=== PATIENT | female | born 1995 | race Asian ===

== ENCOUNTER 2018-01-29 07:27 | Emergency (ER) | payer MEDICAID, OTHER ==
[~2018-01-29] VITALS: Ht 157.5 cm; Wt 60.0 kg
[~2018-01-29 07:27] MED LIST: ONDA4TAB12 PO; ONDA4TAB6 PO; ONDA4TAB9 PO; PANT20TA2 PO
[2018-01-29 08:09] LABS: URINE HCG NEGATIVE (NEG)
[2018-01-29] MEDS ORDERED: ondansetron/PF 4mg/2ml inj IV ONE ×2 (08:10→09:50)
[2018-01-29] MEDS ORDERED: normal saline 1000ML IV soln IVB ONE (08:10)
[2018-01-29] MEDS ORDERED: ketorolac tromethamine 15mg/ml inj. IV ONE (08:10)
[2018-01-29] MEDS ORDERED: MORPHINE 2MG in 2ml NS syringe IV PRN (08:10)
[2018-01-29 08:15] LABS: BASOPHILS % (AUTO) 0 % (0-1); EOSINOPHILS # (AUTO) 0.1 X10'3 (0-0.9); EOSINOPHILS % (AUTO) 2.1 % (0-6); HEMATOCRIT 43.1 % (35.0-45.0); HEMOGLOBIN 14.8 g/dl (12.0-16.0); LYMPHOCYTES # (AUTO) 0.9 X10'3 (1.1-4.8); LYMPHOCYTES % (AUTO) 13.2 % (21-51); MEAN CORPUSCULAR HEMOGLOBIN 29.3 PG (27.0-31.0); MEAN CORPUSCULAR HGB CONC 34.4 % (33.0-36.5); MEAN CORPUSCULAR VOLUME 85.1 FL (78-98); MEAN PLATELET VOLUME 8.9 FL (7.4-10.4); MONOCYTES # (AUTO) 0.3 X10'3 (0-0.9); NEUTROPHILS # (AUTO) 5.3 X10'3 (1.8-7.7); NEUTROPHILS % (AUTO) 79.7 % (42-75); PLATELET COUNT 225 X10'3 (140-440); RED BLOOD COUNT 5.07 X10'6 (4.20-5.60); RED CELL DISTRIBUTION WIDTH 13.2 % (11.5-14.5); WHITE BLOOD COUNT 6.7 X10'3 (4.5-11.0)
[2018-01-29 08:19] LABS: CLARITY,URINE CLEAR (Clear); COLOR,URINE YELLOW (Yellow); GLUCOSE, URINE NEGATIVE (Neg); KETONES,URINE 15 mg/dl (Neg); LEUKOCYTE ESTERASE ,URINE NEGATIVE (Neg); NITRITES, URINE NEGATIVE (Neg); OCCULT BLOOD,URINE TRACE-INTACT (Neg); PROTEIN,URINE TRACE mg/dl (Neg); UROBILINOGEN,URINE 0.2 E.U/dL (0.2-1.0)
[2018-01-29 08:23] LABS: PROTHROMBIN TIME 10.5 SECONDS (9.0-12.0)
[2018-01-29 08:23] LABS: UA COLLECTION TYPE CLN CATCH MIDSTREAM
[2018-01-29 08:25] LABS: BACTERIA,URINE FEW /HPF (Neg); MUCUS STRANDS FEW /LPF (Neg); SQUAMOUS EPITHELIAL CELL,UR FEW /LPF (FEW); WBC,URINE 0-4 /HPF (0-4)
[2018-01-29 08:32] LABS: ALANINE AMINOTRANSFERASE 58 U/L (12-78); ALBUMIN 4.2 G/DL (3.4-5.0); ALBUMIN/GLOBULIN RATIO 1.2 (1.1-1.5); ALKALINE PHOSPHATASE 61 IU/L (46-116); ANION GAP 13 (8-16); ASPARTATE AMINO TRANSFERASE 20 U/L (10-37); BILIRUBIN,TOTAL 1.8 MG/DL (0.1-1.0); BLOOD UREA NITROGEN 14 MG/DL (7-18); BUN/CREATININE RATIO 19.4 (6.6-38.0); CHLORIDE 105 MMOL/L (99-107); CREATININE 0.72 MG/DL (0.40-0.90); GLUCOSE 109 MG/DL (70-104); POTASSIUM 3.6 MMOL/L (3.5-5.1); SODIUM 139 MMOL/L (135-145); TOTAL CARBON DIOXIDE 21.3 MMOL/L (24-32); TOTAL PROTEIN 7.6 G/DL (6.4-8.2); eGFR > 90 ML/MIN
[2018-01-29] MEDS ORDERED: ONDA4TAB9 PO (09:42)
[2018-01-29] MEDS ORDERED: proCHLORperazine 10 MG/2 ml inj IV ONE (09:50)
[2018-01-29 10:11] VITALS: BP 100/60
== END 2018-01-29 10:13 | disposition home or self-care (01) ==
LOC: ER 07:27
DX: R11.2 Nausea with vomiting, unspecified (principal); R19.7 Diarrhea, unspecified; E86.0 Dehydration; G89.29 Other chronic pain; F12.10 Cannabis abuse, uncomplicated
CPT/HCPCS: 36415; 74176; 80053; 81001; 81025; 85025; 85610; 96361; 96374; 96375; 96376; 99285; J0780; J1885; J2405; J7030

== ENCOUNTER 2018-10-09 15:01 | Inpatient (IN) | payer OTHER, MEDICAID | END 2018-10-10 15:30 | disposition home or self-care (01) | LOC: ORTHO 4S 10-10 06:45 → ER 15:01 → ED HOLD 22:08 ==

== ENCOUNTER 2020-07-24 05:51 | Emergency (ER) | payer MEDICAID ==
[~2020-07-24] VITALS: Ht 157.5 cm; Wt 59.1 kg
[~2020-07-24 05:51] MED LIST changes: -ONDA4TAB12 PO; -ONDA4TAB6 PO; -ONDA4TAB9 PO; -PANT20TA2 PO; +PROC10TA10 PO
[2020-07-24] MEDS ORDERED: pantoprazole 40 MG vial IV ONE (06:10)
[2020-07-24] MEDS ORDERED: normal saline 1000ML IV soln IVB ONE (06:10)
[2020-07-24] MEDS ORDERED: ondansetron/PF 4mg/2ml inj IV ONE (06:10)
[2020-07-24] MEDS ORDERED: haloperidol lactate 5mg/ml inj IM ONE (06:30)
--- NOTE | 2020-07-24 06:40 | NUR ---
pt states, i drank to much tequila
[2020-07-24 07:51] LABS: BASOPHILS % (AUTO) 0.3 % (0-1); EOSINOPHILS % (AUTO) 0.1 % (0-6); HEMATOCRIT 43.1 % (35.0-45.0); HEMOGLOBIN 14.7 g/dl (12.0-16.0); LYMPHOCYTES # (AUTO) 1.5 X10'3 (1.1-4.8); LYMPHOCYTES % (AUTO) 10.6 % (21-51); MEAN CORPUSCULAR HEMOGLOBIN 29.8 PG (27.0-31.0); MEAN CORPUSCULAR VOLUME 87.5 FL (78-98); MONOCYTES # (AUTO) 0.5 X10'3 (0-0.9); MONOCYTES % (AUTO) 3.9 % (2-12); NEUTROPHILS # (AUTO) 11.7 X10'3 (1.8-7.7); NEUTROPHILS % (AUTO) 85.1 % (42-75); PLATELET COUNT 257 X10'3 (140-440); RED BLOOD COUNT 4.92 X10'6 (4.20-5.60); RED CELL DISTRIBUTION WIDTH 13.4 % (11.5-14.5); WHITE BLOOD COUNT 13.8 X10'3 (4.5-11.0)
[2020-07-24 08:01] LABS: ALANINE AMINOTRANSFERASE 21 U/L (12-78); ALBUMIN 4.6 G/DL (3.4-5.0); ALBUMIN/GLOBULIN RATIO 1.3 (1.1-1.5); ALKALINE PHOSPHATASE 53 IU/L (46-116); ANION GAP 15 (8-16); ASPARTATE AMINO TRANSFERASE 17 U/L (10-37); BILIRUBIN,TOTAL 2.1 MG/DL (0.1-1.0); BLOOD UREA NITROGEN 11 MG/DL (7-18); BUN/CREATININE RATIO 14.5 (6.6-38.0); CALCIUM 9.9 MG/DL (8.5-10.1); CHLORIDE 104 MMOL/L (99-107); CREATININE 0.76 MG/DL (0.40-0.90); GLUCOSE 139 MG/DL (70-104); LIPASE 71 U/L (73-393); POTASSIUM 3.5 MMOL/L (3.5-5.1); SODIUM 141 MMOL/L (135-145); TOTAL CARBON DIOXIDE 22.4 MMOL/L (24-32); TOTAL PROTEIN 8.1 G/DL (6.4-8.2); eGFR > 90 ML/MIN
[2020-07-24 08:12] LABS: HCG SERUM QL NEGATIVE
[2020-07-24] MEDS ORDERED: ONDA4TAB6 PO (08:21)
[2020-07-24] MEDS ORDERED: OMEP40CA13 PO (08:21)
[2020-07-24 09:03] VITALS: BP 104/65
--- NOTE | 2020-07-24 09:04 | NUR ---
no vomting nausea a little better.
== END 2020-07-24 09:48 | disposition home or self-care (01) ==
LOC: ER 05:52
DX: K29.00 Acute gastritis without bleeding (principal); R11.2 Nausea with vomiting, unspecified; R10.84 Generalized abdominal pain; F12.90 Cannabis use, unspecified, uncomplicated; Z79.899 Other long term (current) drug therapy
CPT/HCPCS: 36415; 80053; 83690; 84703; 85025; 96361; 96372; 96374; 96375; 99284; C9113; J1630; J2405; J7030

== ENCOUNTER 2020-07-26 06:42 | Emergency (ER) | payer MEDICAID ==
[~2020-07-26] VITALS: Ht 157.5 cm; Wt 54.0 kg
[~2020-07-26 06:42] MED LIST changes: +OMEP40CA13 PO; +ONDA4TAB6 PO
[2020-07-26] MEDS ORDERED: diphenhydrAMINE 50 mg/ml inj IV ONE (07:00)
[2020-07-26] MEDS ORDERED: ondansetron/PF 4mg/2ml inj IV ONE (07:00)
[2020-07-26] MEDS ORDERED: normal saline 1000ML IV soln IVB ONE (07:00)
[2020-07-26] MEDS ORDERED: LORazepam 2 mg/ml vial IV ONE (07:00)
[2020-07-26] MEDS ORDERED: metoclopramide 5 mg/ml inj IV ONE (07:00)
[2020-07-26] MEDS ORDERED: pantoprazole 40 MG vial IV ONE (07:00)
--- NOTE | 2020-07-26 07:21 | NUR ---
cosigned meds with rn. scanner not working
[2020-07-26 07:45] LABS: ALANINE AMINOTRANSFERASE 19 U/L (12-78); ALBUMIN 4.2 G/DL (3.4-5.0); ALBUMIN/GLOBULIN RATIO 1.2 (1.1-1.5); ALKALINE PHOSPHATASE 57 IU/L (46-116); ANION GAP 13 (8-16); ASPARTATE AMINO TRANSFERASE 17 U/L (10-37); BILIRUBIN,TOTAL 1.2 MG/DL (0.1-1.0); BLOOD UREA NITROGEN 14 MG/DL (7-18); BUN/CREATININE RATIO 17.3 (6.6-38.0); CALCIUM 9.2 MG/DL (8.5-10.1); CHLORIDE 103 MMOL/L (99-107); CREATININE 0.81 MG/DL (0.40-0.90); GLUCOSE 122 MG/DL (70-104); SODIUM 138 MMOL/L (135-145); TOTAL CARBON DIOXIDE 21.9 MMOL/L (24-32); TOTAL PROTEIN 7.6 G/DL (6.4-8.2); eGFR 87 ML/MIN
[2020-07-26] MEDS: potassium Cl 10 mEq/100mL bag IV SCH ×2 (08:15→09:39)
[2020-07-26] MEDS ORDERED: potassium Cl 20 mEq SR tablet PO ONE (08:15)
[2020-07-26] MEDS ORDERED: haloperidol lactate 5mg/ml inj IM ONE (08:25)
--- NOTE | 2020-07-26 08:48 | NUR ---
pt medicated again with halodol im as pt was still not feeling better ,c/o nausea .pt iv pottassium infusing as per md orders ,no distress noted ,will cont to monitor and reassess the nausea .
--- NOTE | 2020-07-26 08:50 | NUR ---
pt pottasium oral meds not admin because pt said she is still nauseous and take it later ,will cont to monitor .
[2020-07-26 09:58] VITALS: BP 112/77
[2020-07-27] MEDS ORDERED: ONDA4TAB6 PO (22:30)
[2020-07-27] MEDS ORDERED: FAMO40TA73 PO (22:30)
== END 2020-07-26 11:11 | disposition home or self-care (01) ==
LOC: ER 06:43
DX: R11.2 Nausea with vomiting, unspecified (principal); E87.6 Hypokalemia; R10.10 Upper abdominal pain, unspecified; G89.29 Other chronic pain; F41.9 Anxiety disorder, unspecified; F32.9 Major depressive disorder, single episode, unspecified; F12.90 Cannabis use, unspecified, uncomplicated; Z79.899 Other long term (current) drug therapy
CPT/HCPCS: 36415; 80053; 96361; 96365; 96366; 96372; 96375; 99284; C9113; J1200; J1630; J2060; J2405; J2765; J3480; J7030

== ENCOUNTER 2020-07-27 19:34 | Emergency (ER) | payer MEDICAID ==
[~2020-07-27] VITALS: Ht 157.5 cm; Wt 44.0 kg
[2020-07-27] MEDS ORDERED: morphine 4 MG/ML inj SYRINge IV PRN (20:20)
[2020-07-27] MEDS ORDERED: normal saline 1000ML IV soln IVB ONE (20:20)
[2020-07-27] MEDS ORDERED: ondansetron/PF 4mg/2ml inj IV ONE (20:20)
[2020-07-27] MEDS ORDERED: famotidine/PF 10 mg/ml inj IV ONE (20:20)
[2020-07-27 20:53] LABS: BASOPHILS % (AUTO) 0.6 % (0-1); EOSINOPHILS % (AUTO) 0.3 % (0-6); HEMATOCRIT 39.4 % (35.0-45.0); HEMOGLOBIN 13.3 g/dl (12.0-16.0); LYMPHOCYTES # (AUTO) 1.4 X10'3 (1.1-4.8); LYMPHOCYTES % (AUTO) 25.5 % (21-51); MEAN CORPUSCULAR HEMOGLOBIN 29.2 PG (27.0-31.0); MEAN CORPUSCULAR HGB CONC 33.8 g/dL (33.0-36.5); MEAN CORPUSCULAR VOLUME 86.4 FL (78-98); MEAN PLATELET VOLUME 8.5 FL (7.4-10.4); MONOCYTES # (AUTO) 0.3 X10'3 (0-0.9); MONOCYTES % (AUTO) 5.4 % (2-12); NEUTROPHILS # (AUTO) 3.7 X10'3 (1.8-7.7); NEUTROPHILS % (AUTO) 68.2 % (42-75); PLATELET COUNT 237 X10'3 (140-440); RED BLOOD COUNT 4.56 X10'6 (4.20-5.60); RED CELL DISTRIBUTION WIDTH 13.3 % (11.5-14.5); WHITE BLOOD COUNT 5.4 X10'3 (4.5-11.0)
[2020-07-27 21:08] LABS: ALANINE AMINOTRANSFERASE 21 U/L (12-78); ALBUMIN 3.9 G/DL (3.4-5.0); ALBUMIN/GLOBULIN RATIO 1.3 (1.1-1.5); ALKALINE PHOSPHATASE 48 IU/L (46-116); ANION GAP 11 (8-16); ASPARTATE AMINO TRANSFERASE 29 U/L (10-37); BILIRUBIN,TOTAL 1.6 MG/DL (0.1-1.0); BLOOD UREA NITROGEN 8 MG/DL (7-18); BUN/CREATININE RATIO 13.6 (6.6-38.0); CALCIUM 8.4 MG/DL (8.5-10.1); CHLORIDE 101 MMOL/L (99-107); CREATININE 0.59 MG/DL (0.40-0.90); GLUCOSE 101 MG/DL (70-104); LIPASE 67 U/L (73-393); POTASSIUM 3.1 MMOL/L (3.5-5.1); SODIUM 137 MMOL/L (135-145); TOTAL CARBON DIOXIDE 25.1 MMOL/L (24-32); eGFR > 90 ML/MIN
--- NOTE | 2020-07-27 21:11 | NUR ---
PT ASKING FOR SOMETHING FOR SLEEP. INFORMED DR. ROGERS. NO NEW ORDERS AT THIS TIME.
[2020-07-27 21:39] LABS: URINE HCG NEGATIVE (NEG)
[2020-07-27 21:40] LABS: CLARITY,URINE SLIGHTLY CLOUDY (Clear); COLOR,URINE YELLOW (Yellow); GLUCOSE, URINE NEGATIVE (Neg); KETONES,URINE 40 mg/dl (Neg); LEUKOCYTE ESTERASE ,URINE NEGATIVE (Neg); NITRITES, URINE NEGATIVE (Neg); OCCULT BLOOD,URINE NEGATIVE (Neg); PROTEIN,URINE NEGATIVE (Neg)
[2020-07-27 21:45] LABS: UA COLLECTION TYPE CLN CATCH MIDSTREAM
[2020-07-27 21:47] LABS: BACTERIA,URINE NONE SEEN /HPF (Neg); RBC,URINE NONE SEEN /HPF (0-2); SQUAMOUS EPITHELIAL CELL,UR FEW /LPF (FEW); WBC,URINE 0-4 /HPF (0-4)
[2020-07-27] MEDS ORDERED: ONDA4TAB6 PO (22:30)
[2020-07-27] MEDS ORDERED: FAMO40TA73 PO (22:30)
[2020-07-27] MEDS ORDERED: potassium Cl 20 mEq SR tablet PO ONE (22:35)
[2020-07-27 23:20] VITALS: BP 106/60
[2020-07-28] MEDS ORDERED: ONDA4TAB6 PO (20:50)
[2020-07-28] MEDS ORDERED: CYCL-1 PO (20:50)
[2020-07-28] MEDS ORDERED: PANT20TA18 PO (20:50)
== END 2020-07-27 22:56 | disposition home or self-care (01) ==
LOC: ER 19:35
DX: K29.00 Acute gastritis without bleeding (principal); R10.31 Right lower quadrant pain; F41.9 Anxiety disorder, unspecified; F32.9 Major depressive disorder, single episode, unspecified; G89.29 Other chronic pain; F12.90 Cannabis use, unspecified, uncomplicated; Z79.899 Other long term (current) drug therapy
CPT/HCPCS: 36415; 74176; 80053; 81001; 81025; 83690; 85025; 96374; 96375; 99284; J2270; J2405; J3490; J7030; 96361

== ENCOUNTER 2020-07-28 16:28 | Emergency (ER) | payer MEDICAID ==
[~2020-07-28] VITALS: Ht 157.5 cm; Wt 57.0 kg
[~2020-07-28 16:28] MED LIST changes: +FAMO40TA73 PO
[2020-07-28 17:15] LABS: BASOPHILS % (AUTO) 0.5 % (0-1); EOSINOPHILS % (AUTO) 0.2 % (0-6); HEMATOCRIT 41.8 % (35.0-45.0); HEMOGLOBIN 14.1 g/dl (12.0-16.0); LYMPHOCYTES # (AUTO) 1.8 X10'3 (1.1-4.8); LYMPHOCYTES % (AUTO) 28.5 % (21-51); MEAN CORPUSCULAR HEMOGLOBIN 29.4 PG (27.0-31.0); MEAN CORPUSCULAR HGB CONC 33.8 g/dL (33.0-36.5); MEAN CORPUSCULAR VOLUME 87.1 FL (78-98); MEAN PLATELET VOLUME 8.7 FL (7.4-10.4); MONOCYTES # (AUTO) 0.3 X10'3 (0-0.9); MONOCYTES % (AUTO) 5.2 % (2-12); NEUTROPHILS # (AUTO) 4.1 X10'3 (1.8-7.7); NEUTROPHILS % (AUTO) 65.6 % (42-75); PLATELET COUNT 265 X10'3 (140-440); RED CELL DISTRIBUTION WIDTH 13.1 % (11.5-14.5); WHITE BLOOD COUNT 6.3 X10'3 (4.5-11.0)
[2020-07-28 17:31] LABS: ALANINE AMINOTRANSFERASE 18 U/L (12-78); ALBUMIN 4.3 G/DL (3.4-5.0); ALBUMIN/GLOBULIN RATIO 1.3 (1.1-1.5); ALKALINE PHOSPHATASE 51 IU/L (46-116); ANION GAP 13 (8-16); ASPARTATE AMINO TRANSFERASE 22 U/L (10-37); BILIRUBIN,TOTAL 1.7 MG/DL (0.1-1.0); BLOOD UREA NITROGEN 7 MG/DL (7-18); BUN/CREATININE RATIO 9.9 (6.6-38.0); CHLORIDE 99 MMOL/L (99-107); CREATININE 0.71 MG/DL (0.40-0.90); GLUCOSE 108 MG/DL (70-104); LIPASE 80 U/L (73-393); POTASSIUM 3.4 MMOL/L (3.5-5.1); SODIUM 133 MMOL/L (135-145); TOTAL CARBON DIOXIDE 21.4 MMOL/L (24-32); TOTAL PROTEIN 7.5 G/DL (6.4-8.2); eGFR > 90 ML/MIN
[2020-07-28] MEDS ORDERED: D5-1/2NS w/20 mEq potassium per 1000ml IV ONE (18:35)
[2020-07-28] MEDS ORDERED: pantoprazole 40 MG vial IV ONE (18:35)
[2020-07-28] MEDS ORDERED: normal saline 1000ML IV soln IVB ONE (18:35)
[2020-07-28] MEDS ORDERED: magnesium 2GM in 50ml NS 50 ML IV ONE (18:35)
[2020-07-28 18:46] LABS: ETHANOL < 0.010 GM/DL (0.0-0.010); MAGNESIUM 2.1 MG/DL (1.5-2.4)
[2020-07-28 18:46] LABS: CLARITY,URINE CLOUDY (Clear); COLOR,URINE YELLOW (Yellow); GLUCOSE, URINE NEGATIVE (Neg); KETONES,URINE >=80 mg/dl (Neg); LEUKOCYTE ESTERASE ,URINE TRACE (Neg); NITRITES, URINE NEGATIVE (Neg); OCCULT BLOOD,URINE TRACE-INTACT (Neg); PH,URINE 7.5 (4.8-8.0); PROTEIN,URINE NEGATIVE (Neg); UA COLLECTION TYPE CLN CATCH MIDSTREAM
[2020-07-28 18:47] LABS: URINE HCG NEGATIVE (NEG)
[2020-07-28 18:52] LABS: BACTERIA,URINE FEW /HPF (Neg); RBC,URINE 0-2 /HPF (0-2); SQUAMOUS EPITHELIAL CELL,UR FEW /LPF (FEW); WBC,URINE 0-4 /HPF (0-4)
[2020-07-28 18:53] LABS: AMORPHOUS URATES 2+
[2020-07-28 18:58] LABS: URINE AMPHETAMINE SCREEN NEGATIVE (Neg); URINE BARBITUATE SCREEN NEGATIVE (Neg); URINE BENZODIAZEPINES SCREEN NEGATIVE (Neg); URINE CANNABINOID SCREEN POSITIVE (Neg); URINE COCAINE SCREEN NEGATIVE (Neg); URINE METHADONE SCREEN NEGATIVE (Neg); URINE OPIATE SCREEN POSITIVE (Neg); URINE PHENCYCLIDINE SCREEN NEGATIVE (Neg)
[2020-07-28] MEDS ORDERED: ketorolac tromethamine 15mg/ml inj. IV ONE (20:40)
[2020-07-28] MEDS ORDERED: diphenhydrAMINE 50 mg/ml inj IV ONE (20:40)
[2020-07-28] MEDS ORDERED: CYCL-1 PO (20:50)
[2020-07-28] MEDS ORDERED: ONDA4TAB6 PO (20:50)
[2020-07-28] MEDS ORDERED: ondansetron/PF 4mg/2ml inj IV ONE ×2 (20:50→22:00)
[2020-07-28] MEDS ORDERED: PANT20TA18 PO (20:50)
[2020-07-28] MEDS ORDERED: haloperidol lactate 5mg/ml inj IM ONE (22:35)
[2020-07-28 23:00] VITALS: BP 104/64
== END 2020-07-28 22:58 | disposition home or self-care (01) ==
LOC: ER 16:29
DX: M79.604 Pain in right leg (principal); R11.2 Nausea with vomiting, unspecified; G89.29 Other chronic pain; F41.9 Anxiety disorder, unspecified; F32.9 Major depressive disorder, single episode, unspecified; F12.90 Cannabis use, unspecified, uncomplicated; Z79.899 Other long term (current) drug therapy
CPT/HCPCS: 36415; 80053; 80305; 80320; 81001; 81025; 83690; 83735; 85025; 87088; 96365; 96366; 96368; 96372; 96375; 96376; 99285; C9113; J1200; J1630; J1885; J2405; J3475; J3480; J7030

== ENCOUNTER 2020-08-26 12:32 | Emergency (ER) | payer MEDICAID ==
[~2020-08-26] VITALS: Ht 157.5 cm; Wt 63.0 kg
[~2020-08-26 12:32] MED LIST changes: +CYCL-1 PO; -OMEP40CA13 PO; +PANT20TA18 PO
[2020-08-26] MEDS ORDERED: proCHLORperazine 10 MG/2 ml inj IV ONE (12:50)
[2020-08-26] MEDS ORDERED: normal saline 1000ML IV soln IVB ONE (12:50)
[2020-08-26] MEDS ORDERED: diphenhydrAMINE 50 mg/ml inj IV ONE (12:50)
[2020-08-26] MEDS ORDERED: haloperidol lactate 5mg/ml inj IM ONE (13:05)
[2020-08-26 13:20] LABS: BASOPHILS % (AUTO) 0.4 % (0-1); EOSINOPHILS # (AUTO) 0.1 X10'3 (0-0.9); EOSINOPHILS % (AUTO) 0.6 % (0-6); HEMATOCRIT 44.3 % (35.0-45.0); HEMOGLOBIN 15.1 g/dl (12.0-16.0); LYMPHOCYTES # (AUTO) 2.6 X10'3 (1.1-4.8); LYMPHOCYTES % (AUTO) 27.1 % (21-51); MEAN CORPUSCULAR HEMOGLOBIN 29.5 PG (27.0-31.0); MEAN CORPUSCULAR VOLUME 86.9 FL (78-98); MEAN PLATELET VOLUME 8.7 FL (7.4-10.4); MONOCYTES # (AUTO) 0.5 X10'3 (0-0.9); MONOCYTES % (AUTO) 5.5 % (2-12); NEUTROPHILS # (AUTO) 6.4 X10'3 (1.8-7.7); NEUTROPHILS % (AUTO) 66.4 % (42-75); PLATELET COUNT 300 X10'3 (140-440); RED CELL DISTRIBUTION WIDTH 13.5 % (11.5-14.5); WHITE BLOOD COUNT 9.7 X10'3 (4.5-11.0)
[2020-08-26 13:33] LABS: ALANINE AMINOTRANSFERASE 17 U/L (12-78); ALBUMIN 4.4 G/DL (3.4-5.0); ALBUMIN/GLOBULIN RATIO 1.3 (1.1-1.5); ALKALINE PHOSPHATASE 64 IU/L (46-116); ANION GAP 15 (8-16); ASPARTATE AMINO TRANSFERASE 14 U/L (10-37); BILIRUBIN,TOTAL 1.5 MG/DL (0.1-1.0); BLOOD UREA NITROGEN 5 MG/DL (7-18); BUN/CREATININE RATIO 6.3 (6.6-38.0); CALCIUM 9.9 MG/DL (8.5-10.1); CHLORIDE 106 MMOL/L (99-107); GLUCOSE 128 MG/DL (70-104); LIPASE 69 U/L (73-393); POTASSIUM 3.3 MMOL/L (3.5-5.1); SODIUM 143 MMOL/L (135-145); TOTAL CARBON DIOXIDE 22.3 MMOL/L (24-32); TOTAL PROTEIN 7.9 G/DL (6.4-8.2); eGFR 88 ML/MIN
[2020-08-26] MEDS ORDERED: DICY10CA88 PO (14:56)
[2020-08-26] MEDS ORDERED: ONDA4TAB6 PO (14:56)
[2020-08-26 15:09] VITALS: BP 102/61
[2020-08-26] MEDS ORDERED: PROC25SU31 RC (19:54)
== END 2020-08-26 15:10 | disposition home or self-care (01) ==
LOC: ER 12:32
DX: R11.15 Cyclical vomiting syndrome unrelated to migraine (principal); R11.2 Nausea with vomiting, unspecified; R10.84 Generalized abdominal pain; E87.6 Hypokalemia; G89.29 Other chronic pain; F41.9 Anxiety disorder, unspecified; F32.9 Major depressive disorder, single episode, unspecified; F12.90 Cannabis use, unspecified, uncomplicated; Z79.899 Other long term (current) drug therapy
CPT/HCPCS: 36415; 80053; 83690; 85025; 96361; 96372; 96374; 96375; 99284; J0780; J1200; J1630; J7030

== ENCOUNTER 2020-08-26 16:56 | Emergency (ER) | payer MEDICAID ==
[~2020-08-26] VITALS: Ht 157.5 cm; Wt 53.2 kg
[~2020-08-26 16:56] MED LIST changes: +DICY10CA88 PO
[2020-08-26] MEDS ORDERED: normal saline 1000ml 1,000 ML IV ONE (18:35)
[2020-08-26] MEDS ORDERED: proCHLORperazine 10 MG/2 ml inj IV ONE (18:35)
[2020-08-26 19:01] LABS: COLOR,URINE YELLOW (Yellow); GLUCOSE, URINE NEGATIVE (Neg); KETONES,URINE >=80 mg/dl (Neg); LEUKOCYTE ESTERASE ,URINE NEGATIVE (Neg); NITRITES, URINE NEGATIVE (Neg); OCCULT BLOOD,URINE NEGATIVE (Neg); PH,URINE 7.5 (4.8-8.0); PROTEIN,URINE TRACE mg/dl (Neg); UROBILINOGEN,URINE 0.2 E.U/dL (0.2-1.0)
[2020-08-26 19:11] LABS: CLARITY,URINE SLIGHTLY CLOUDY (Clear); RBC,URINE 0-2 /HPF (0-2); UA COLLECTION TYPE CLN CATCH MIDSTREAM; WBC,URINE 0-4 /HPF (0-4)
[2020-08-26 19:12] LABS: BACTERIA,URINE FEW /HPF (Neg); MUCUS STRANDS MODERATE /LPF (Neg); SQUAMOUS EPITHELIAL CELL,UR MANY /LPF (FEW)
--- NOTE | 2020-08-26 19:43 | NUR ---
pt reponts continued nausea and had another episoded of vomiting, 100 cc's food particles , brown, watery. Denies pain. hr 106, otherwise vss. given another blanket.
[2020-08-26 19:44] LABS: URINE HCG NEGATIVE (NEG)
--- NOTE | 2020-08-26 19:48 | NUR ---
TONE Perez, updated of pts continued nausea. Verbal received for zofran 4 mg iv. He reports pt then to be discharged with script for compazine.
[2020-08-26] MEDS ORDERED: ondansetron/PF 4mg/2ml inj IV ONE (19:50)
[2020-08-26] MEDS ORDERED: PROC25SU31 RC (19:54)
--- NOTE | 2020-08-26 20:07 | NUR ---
given zofran 4 mg iv. updated of plan for dc with compazine. pt states "i dont want to go home, i want to stay here, ill just end up comming back...none of these medicines are helping. " nolan puentes updated.
[2020-08-26 20:48] VITALS: BP 115/78
== END 2020-08-26 20:49 | disposition home or self-care (01) ==
LOC: ER 16:56
DX: R11.15 Cyclical vomiting syndrome unrelated to migraine (principal); R11.2 Nausea with vomiting, unspecified; R10.84 Generalized abdominal pain; G89.29 Other chronic pain; F41.9 Anxiety disorder, unspecified; F32.9 Major depressive disorder, single episode, unspecified; F12.90 Cannabis use, unspecified, uncomplicated; Z79.899 Other long term (current) drug therapy
CPT/HCPCS: 81001; 81025; 96374; 96375; 99284; J0780; J2405; J7030

== ENCOUNTER 2020-08-28 02:20 | Emergency (ER) | payer MEDICAID ==
[~2020-08-28] VITALS: Ht 157.5 cm; Wt 53.8 kg
[~2020-08-28 02:20] MED LIST changes: +PROC25SU31 RC
[2020-08-28 02:51] VITALS: BP 124/81
[2020-08-28] MEDS ORDERED: haloperidol lactate 5mg/ml inj IM ONE (02:55)
[2020-08-28] MEDS ORDERED: ondansetron 4mg rapidly disintigrating tab PO ONE (03:15)
[2020-08-28] MEDS ORDERED: ONDA4TAB6 PO (03:16)
== END 2020-08-28 03:32 | disposition home or self-care (01) ==
LOC: ER 02:20
DX: R11.2 Nausea with vomiting, unspecified (principal); R10.9 Unspecified abdominal pain; F41.9 Anxiety disorder, unspecified; F32.9 Major depressive disorder, single episode, unspecified; G89.29 Other chronic pain; F12.10 Cannabis abuse, uncomplicated; Z79.899 Other long term (current) drug therapy
CPT/HCPCS: 96372; 99283; J1630

== ENCOUNTER 2020-09-01 08:30 | Emergency (ER) | payer MEDICAID ==
[~2020-09-01] VITALS: Ht 152.4 cm; Wt 52.7 kg
--- NOTE | 2020-09-01 09:03 | NUR ---
pt educated about need for ua. stated she cannot go to the bathroom right now.
[2020-09-01] MEDS ORDERED: LORazepam 2 mg/ml vial IM ONE (09:25)
[2020-09-01] MEDS ORDERED: haloperidol lactate 5mg/ml inj IM ONE (09:25)
[2020-09-01 10:12] LABS: URINE HCG NEGATIVE (NEG)
[2020-09-01 10:46] VITALS: BP 120/63
== END 2020-09-01 10:48 | disposition home or self-care (01) ==
LOC: ER 08:30
DX: F12.188 Cannabis abuse with other cannabis-induced disorder (principal); R11.2 Nausea with vomiting, unspecified; R10.84 Generalized abdominal pain; G89.29 Other chronic pain; F41.9 Anxiety disorder, unspecified; F32.9 Major depressive disorder, single episode, unspecified; Z79.899 Other long term (current) drug therapy
CPT/HCPCS: 81025; 96372; 99284; J1630; J2060

== ENCOUNTER 2020-09-28 19:52 | Emergency (ER) | payer MEDICAID ==
[~2020-09-28] VITALS: Ht 157.5 cm; Wt 54.1 kg
[~2020-09-28 19:52] MED LIST changes: -PROC25SU31 RC
[2020-09-28 20:35] LABS: BASOPHILS % (AUTO) 0.1 % (0-1); EOSINOPHILS % (AUTO) 0 % (0-6); HEMATOCRIT 41.8 % (35.0-45.0); HEMOGLOBIN 14.4 g/dl (12.0-16.0); LYMPHOCYTES # (AUTO) 0.7 X10'3 (1.1-4.8); MEAN CORPUSCULAR HGB CONC 34.6 g/dL (33.0-36.5); MEAN CORPUSCULAR VOLUME 86.9 FL (78-98); MEAN PLATELET VOLUME 8.9 FL (7.4-10.4); MONOCYTES # (AUTO) 0.1 X10'3 (0-0.9); NEUTROPHILS # (AUTO) 12.7 X10'3 (1.8-7.7); NEUTROPHILS % (AUTO) 93.9 % (42-75); PLATELET COUNT 279 X10'3 (140-440); RED BLOOD COUNT 4.81 X10'6 (4.20-5.60); RED CELL DISTRIBUTION WIDTH 13.5 % (11.5-14.5); WHITE BLOOD COUNT 13.5 X10'3 (4.5-11.0)
[2020-09-28 20:48] LABS: ALANINE AMINOTRANSFERASE 20 U/L (12-78); ALBUMIN 4.3 G/DL (3.4-5.0); ALBUMIN/GLOBULIN RATIO 1.2 (1.1-1.5); ALKALINE PHOSPHATASE 59 IU/L (46-116); ANION GAP 17 (8-16); ASPARTATE AMINO TRANSFERASE 17 U/L (10-37); BILIRUBIN,TOTAL 1.5 MG/DL (0.1-1.0); BLOOD UREA NITROGEN 8 MG/DL (7-18); BUN/CREATININE RATIO 9.8 (6.6-38.0); CALCIUM 9.4 MG/DL (8.5-10.1); CHLORIDE 105 MMOL/L (99-107); CREATININE 0.82 MG/DL (0.40-0.90); GLUCOSE 167 MG/DL (70-104); LIPASE < 50 U/L (73-393); POTASSIUM 3.5 MMOL/L (3.5-5.1); SODIUM 140 MMOL/L (135-145); TOTAL CARBON DIOXIDE 17.9 MMOL/L (24-32); TOTAL PROTEIN 7.8 G/DL (6.4-8.2); eGFR 86 ML/MIN
[2020-09-28] MEDS ORDERED: haloperidol lactate 5mg/ml inj IM ONE (20:55)
[2020-09-28] MEDS ORDERED: LORazepam 2 mg/ml vial IV ONE (20:55)
[2020-09-28] MEDS ORDERED: normal saline 1000ml 1,000 ML IV ONE ×2 (20:55→23:05)
[2020-09-28 21:00] LABS: URINE HCG NEGATIVE (NEG)
[2020-09-28 21:11] LABS: CLARITY,URINE CLEAR (Clear); COLOR,URINE YELLOW (Yellow); GLUCOSE, URINE NEGATIVE (Neg); KETONES,URINE >=80 mg/dl (Neg); LEUKOCYTE ESTERASE ,URINE NEGATIVE (Neg); NITRITES, URINE NEGATIVE (Neg); OCCULT BLOOD,URINE NEGATIVE (Neg); PROTEIN,URINE TRACE mg/dl (Neg); UROBILINOGEN,URINE 0.2 E.U/dL (0.2-1.0)
[2020-09-28 21:12] LABS: UA COLLECTION TYPE CLN CATCH MIDSTREAM
[2020-09-28 21:13] LABS: RBC,URINE NONE SEEN /HPF (0-2); SQUAMOUS EPITHELIAL CELL,UR MANY /LPF (FEW); WBC,URINE 0-4 /HPF (0-4)
[2020-09-28 21:14] LABS: BACTERIA,URINE 1+ /HPF (Neg)
[2020-09-28] MEDS ORDERED: proCHLORperazine 10 MG/2 ml inj IV ONE (22:10)
[2020-09-28] MEDS ORDERED: diphenhydrAMINE 50 mg/ml inj IV ONE (22:10)
[2020-09-28] MEDS ORDERED: ONDA4TAB6 PO (22:30)
[2020-09-29] MEDS ORDERED: PROC25SU31 RC (00:02)
[2020-09-29 00:18] VITALS: BP 112/71
[2020-09-30] MEDS ORDERED: PROC25SU31 RC (03:36)
[2020-09-30] MEDS ORDERED: ONDA4TAB6 PO (03:36)
== END 2020-09-29 00:21 | disposition home or self-care (01) ==
LOC: ER 19:52
DX: R11.2 Nausea with vomiting, unspecified (principal); F12.90 Cannabis use, unspecified, uncomplicated; Z72.89 Other problems related to lifestyle; G89.29 Other chronic pain; Z79.899 Other long term (current) drug therapy
CPT/HCPCS: 36415; 80053; 81001; 81025; 83690; 85025; 96361; 96372; 96374; 96375; 99284; J0780; J1200; J1630; J2060; J7030

== ENCOUNTER 2020-09-30 00:10 | Emergency (ER) | payer MEDICAID ==
[~2020-09-30] VITALS: Ht 157.5 cm; Wt 54.1 kg
[~2020-09-30 00:10] MED LIST changes: +PROC25SU31 RC
[2020-09-30 00:20] VITALS: BP 125/73
[2020-09-30] MEDS ORDERED: diphenhydrAMINE 50 mg/ml inj IV ONE (01:30)
[2020-09-30] MEDS ORDERED: haloperidol lactate 5mg/ml inj IM ONE (01:30)
[2020-09-30] MEDS ORDERED: famotidine/PF 10 mg/ml inj IV ONE (01:30)
[2020-09-30] MEDS ORDERED: normal saline 1000ML IV soln IVB ONE (01:30)
[2020-09-30] MEDS ORDERED: metoclopramide 5 mg/ml inj IV ONE (01:30)
[2020-09-30] MEDS ORDERED: pantoprazole 40 MG vial IV ONE (01:30)
[2020-09-30 02:19] LABS: BASOPHILS % (AUTO) 0.2 % (0-1); EOSINOPHILS % (AUTO) 0 % (0-6); HEMATOCRIT 41.3 % (35.0-45.0); LYMPHOCYTES # (AUTO) 1.4 X10'3 (1.1-4.8); MEAN CORPUSCULAR HEMOGLOBIN 29.8 PG (27.0-31.0); MEAN CORPUSCULAR HGB CONC 33.9 g/dL (33.0-36.5); MEAN CORPUSCULAR VOLUME 87.7 FL (78-98); MEAN PLATELET VOLUME 9.3 FL (7.4-10.4); MONOCYTES # (AUTO) 0.4 X10'3 (0-0.9); MONOCYTES % (AUTO) 3.5 % (2-12); NEUTROPHILS # (AUTO) 10.6 X10'3 (1.8-7.7); NEUTROPHILS % (AUTO) 85.3 % (42-75); PLATELET COUNT 249 X10'3 (140-440); RED BLOOD COUNT 4.71 X10'6 (4.20-5.60); RED CELL DISTRIBUTION WIDTH 13.3 % (11.5-14.5); WHITE BLOOD COUNT 12.5 X10'3 (4.5-11.0)
[2020-09-30 02:23] LABS: ALANINE AMINOTRANSFERASE 20 U/L (12-78); ALBUMIN 4.2 G/DL (3.4-5.0); ALBUMIN/GLOBULIN RATIO 1.3 (1.1-1.5); ALKALINE PHOSPHATASE 54 IU/L (46-116); ANION GAP 14 (8-16); ASPARTATE AMINO TRANSFERASE 23 U/L (10-37); BILIRUBIN,TOTAL 2.5 MG/DL (0.1-1.0); BLOOD UREA NITROGEN 8 MG/DL (7-18); BUN/CREATININE RATIO 11.8 (6.6-38.0); CALCIUM 9.2 MG/DL (8.5-10.1); CHLORIDE 103 MMOL/L (99-107); CREATININE 0.68 MG/DL (0.40-0.90); ETHANOL < 0.010 GM/DL (0.0-0.010); GLUCOSE 105 MG/DL (70-104); POTASSIUM 3.6 MMOL/L (3.5-5.1); SODIUM 137 MMOL/L (135-145); TOTAL PROTEIN 7.5 G/DL (6.4-8.2); eGFR > 90 ML/MIN
[2020-09-30 03:04] LABS: URINE HCG NEGATIVE (NEG)
[2020-09-30 03:08] LABS: CLARITY,URINE CLEAR (Clear); COLOR,URINE YELLOW (Yellow); GLUCOSE, URINE NEGATIVE (Neg); KETONES,URINE >=80 mg/dl (Neg); LEUKOCYTE ESTERASE ,URINE NEGATIVE (Neg); NITRITES, URINE NEGATIVE (Neg); OCCULT BLOOD,URINE NEGATIVE (Neg); PH,URINE 7.5 (4.8-8.0); PROTEIN,URINE NEGATIVE (Neg)
[2020-09-30 03:15] LABS: UA COLLECTION TYPE CLN CATCH MIDSTREAM
--- NOTE | 2020-09-30 03:26 | NUR ---
pt had a patient identification band on from [facility]. She states she has been going back and forth between hospitals. Had a discussion with her about the importance of choosing one hospital as we don't know what meds she got over there and the times, like they don't that about what we have given her and actually how dangerous that is to her consequences of doubling up of potential medications and adverse side affects.
--- NOTE | 2020-09-30 03:28 | NUR ---
Dr Xenia silva.
[2020-09-30] MEDS ORDERED: PROC25SU31 RC (03:36)
[2020-09-30] MEDS ORDERED: ONDA4TAB6 PO (03:36)
[2020-09-30 03:47] LABS: URINE AMPHETAMINE SCREEN NEGATIVE (Neg); URINE BARBITUATE SCREEN NEGATIVE (Neg); URINE BENZODIAZEPINES SCREEN NEGATIVE (Neg); URINE CANNABINOID SCREEN POSITIVE (Neg); URINE COCAINE SCREEN NEGATIVE (Neg); URINE METHADONE SCREEN NEGATIVE (Neg); URINE OPIATE SCREEN NEGATIVE (Neg); URINE PHENCYCLIDINE SCREEN NEGATIVE (Neg)
== END 2020-09-30 04:21 | disposition home or self-care (01) ==
LOC: ER 00:10
DX: F12.188 Cannabis abuse with other cannabis-induced disorder (principal); R11.2 Nausea with vomiting, unspecified; R10.13 Epigastric pain; G89.29 Other chronic pain; F41.9 Anxiety disorder, unspecified; F32.9 Major depressive disorder, single episode, unspecified; Z79.899 Other long term (current) drug therapy
CPT/HCPCS: 36415; 80053; 80305; 80320; 81003; 81025; 85025; 96361; 96372; 96374; 96375; 99284; C9113; J1200; J1630; J2765; J3490; J7030

== ENCOUNTER 2020-10-24 14:28 | Emergency (ER) | payer MEDICAID ==
[~2020-10-24] VITALS: Ht 157.5 cm; Wt 53.2 kg
[2020-10-24 15:41] LABS: BASOPHILS % (AUTO) 0.3 % (0-1); EOSINOPHILS # (AUTO) 0.1 X10'3 (0-0.9); EOSINOPHILS % (AUTO) 0.6 % (0-6); HEMATOCRIT 36.5 % (35.0-45.0); HEMOGLOBIN 12.1 g/dl (12.0-16.0); LYMPHOCYTES # (AUTO) 2.3 X10'3 (1.1-4.8); LYMPHOCYTES % (AUTO) 17.7 % (21-51); MEAN CORPUSCULAR HEMOGLOBIN 28.9 PG (27.0-31.0); MEAN CORPUSCULAR HGB CONC 33.2 g/dL (33.0-36.5); MEAN PLATELET VOLUME 8.6 FL (7.4-10.4); MONOCYTES # (AUTO) 1.5 X10'3 (0-0.9); NEUTROPHILS # (AUTO) 8.8 X10'3 (1.8-7.7); NEUTROPHILS % (AUTO) 69.4 % (42-75); PLATELET COUNT 305 X10'3 (140-440); RED BLOOD COUNT 4.19 X10'6 (4.20-5.60); RED CELL DISTRIBUTION WIDTH 13.2 % (11.5-14.5); WHITE BLOOD COUNT 12.7 X10'3 (4.5-11.0)
[2020-10-24] MEDS ORDERED: normal saline 1000ML IV soln IVB ONE (16:00)
[2020-10-24] MEDS ORDERED: CefTRIAXone/D5W-Rocephin 1gm 50 ML IV ONE (16:00)
[2020-10-24 16:09] LABS: ALANINE AMINOTRANSFERASE 22 U/L (12-78); ALBUMIN 2.7 G/DL (3.4-5.0); ALBUMIN/GLOBULIN RATIO 0.8 (1.1-1.5); ALKALINE PHOSPHATASE 74 IU/L (46-116); ANION GAP 12 (8-16); ASPARTATE AMINO TRANSFERASE 13 U/L (10-37); BILIRUBIN,TOTAL 0.7 MG/DL (0.1-1.0); BLOOD UREA NITROGEN 4 MG/DL (7-18); BUN/CREATININE RATIO 5.4 (6.6-38.0); CALCIUM 8.1 MG/DL (8.5-10.1); CHLORIDE 102 MMOL/L (99-107); CREATININE 0.74 MG/DL (0.40-0.90); GLUCOSE 122 MG/DL (70-104); SODIUM 136 MMOL/L (135-145); TOTAL CARBON DIOXIDE 22.2 MMOL/L (24-32); TOTAL PROTEIN 6.2 G/DL (6.4-8.2); eGFR > 90 ML/MIN
[2020-10-24] MEDS ORDERED: potassium Cl 20 mEq SR tablet PO ONE (16:15)
[2020-10-24] MEDS ORDERED: CEPH500C5 PO (16:17)
[2020-10-24] MEDS ORDERED: ondansetron/PF 4mg/2ml inj IV ONE (16:45)
[2020-10-24 17:39] VITALS: BP 97/53
== END 2020-10-24 17:57 | disposition home or self-care (01) ==
LOC: ER 14:29
DX: S70.01XA Contusion of right hip, initial encounter (principal); L03.116 Cellulitis of left lower limb; E86.0 Dehydration; E87.6 Hypokalemia; G89.29 Other chronic pain; F12.90 Cannabis use, unspecified, uncomplicated; Z79.2 Long term (current) use of antibiotics; Z79.899 Other long term (current) drug therapy; R58 Hemorrhage, not elsewhere classified; X58.XXXA Exposure to other specified factors, initial encounter; Y93.89 Activity, other specified; Y92.89 Other specified places as the place of occurrence of the external cause; Y99.8 Other external cause status
CPT/HCPCS: 36415; 71045; 80053; 83605; 84145; 85025; 87040; 96365; 96375; 99284; J0696; J2405; J7030

== ENCOUNTER 2020-12-26 09:40 | Emergency (ER) | payer MEDICAID ==
[~2020-12-26] VITALS: Ht 154.9 cm; Wt 53.0 kg
[~2020-12-26 09:40] MED LIST changes: +CEPH-585 PO; -PROC25SU31 RC
--- NOTE | 2020-12-26 10:25 | NUR ---
pt unable to obtain urine sample.
[2020-12-26] MEDS ORDERED: ondansetron 4mg rapidly disintigrating tab PO STA (10:27)
--- NOTE | 2020-12-26 10:29 | NUR ---
patient moved to triage 2 due to emesis.Obtained an order for zofran 4mg odt.
[2020-12-26] MEDS ORDERED: ondansetron/PF 4mg/2ml inj IV STA (10:35)
--- NOTE | 2020-12-26 11:10 | NUR ---
candelaria WAYNE at bedside.
[2020-12-26] MEDS ORDERED: haloperidol lactate 5mg/ml inj IM ONE (11:15)
[2020-12-26 11:28] LABS: BASOPHILS % (AUTO) 0.3 % (0-1); EOSINOPHILS % (AUTO) 0.1 % (0-6); HEMATOCRIT 44.3 % (35.0-45.0); HEMOGLOBIN 14.3 g/dl (12.0-16.0); LYMPHOCYTES # (AUTO) 1.9 X10'3 (1.1-4.8); LYMPHOCYTES % (AUTO) 16.5 % (21-51); MEAN CORPUSCULAR HEMOGLOBIN 27.7 PG (27.0-31.0); MEAN CORPUSCULAR HGB CONC 32.2 g/dL (33.0-36.5); MEAN CORPUSCULAR VOLUME 86.1 FL (78-98); MONOCYTES # (AUTO) 0.3 X10'3 (0-0.9); MONOCYTES % (AUTO) 2.5 % (2-12); NEUTROPHILS # (AUTO) 9.2 X10'3 (1.8-7.7); NEUTROPHILS % (AUTO) 80.6 % (42-75); PLATELET COUNT 319 X10'3 (140-440); RED BLOOD COUNT 5.14 X10'6 (4.20-5.60); RED CELL DISTRIBUTION WIDTH 14.1 % (11.5-14.5); WHITE BLOOD COUNT 11.4 X10'3 (4.5-11.0)
[2020-12-26] MEDS ORDERED: proCHLORperazine 10 MG/2 ml inj IV ONE (11:40)
[2020-12-26] MEDS ORDERED: diphenhydrAMINE 50 mg/ml inj IV ONE (11:40)
[2020-12-26 11:42] LABS: ALANINE AMINOTRANSFERASE 18 U/L (12-78); ALBUMIN/GLOBULIN RATIO 1.2 (1.1-1.5); ALKALINE PHOSPHATASE 68 IU/L (46-116); ANION GAP 15 (8-16); ASPARTATE AMINO TRANSFERASE 19 U/L (10-37); BLOOD UREA NITROGEN 10 MG/DL (7-18); BUN/CREATININE RATIO 13.9 (6.6-38.0); CALCIUM 9.5 MG/DL (8.5-10.1); CHLORIDE 105 MMOL/L (99-107); CREATININE 0.72 MG/DL (0.40-0.90); GLUCOSE 145 MG/DL (70-104); POTASSIUM 3.5 MMOL/L (3.5-5.1); SODIUM 141 MMOL/L (135-145); TOTAL CARBON DIOXIDE 21.3 MMOL/L (24-32); TOTAL PROTEIN 7.3 G/DL (6.4-8.2); eGFR > 90 ML/MIN
[2020-12-26 11:55] VITALS: BP 121/66
[2020-12-26 13:05] LABS: HCG SERUM QL NEGATIVE
[2020-12-27] MEDS ORDERED: PROC25SU31 RC (17:27)
== END 2020-12-26 13:13 | disposition home or self-care (01) ==
LOC: ER 09:41
DX: R11.15 Cyclical vomiting syndrome unrelated to migraine (principal); R11.2 Nausea with vomiting, unspecified; G89.29 Other chronic pain; F41.9 Anxiety disorder, unspecified; F32.9 Major depressive disorder, single episode, unspecified; F12.90 Cannabis use, unspecified, uncomplicated; Z79.2 Long term (current) use of antibiotics; Z79.899 Other long term (current) drug therapy
CPT/HCPCS: 36415; 80053; 84703; 85025; 96372; 96374; 96375; 99284; J0780; J1200; J1630; J2405

== ENCOUNTER 2020-12-27 12:49 | Emergency (ER) | payer MEDICAID ==
[~2020-12-27] VITALS: Ht 157.5 cm; Wt 5.3 kg
[2020-12-27] MEDS ORDERED: proCHLORperazine 10 MG/2 ml inj IV ONE (16:15)
[2020-12-27] MEDS ORDERED: diphenhydrAMINE 50 mg/ml inj IV ONE (16:15)
[2020-12-27] MEDS ORDERED: normal saline 1000ML IV soln IVB ONE (16:15)
[2020-12-27] MEDS ORDERED: LORazepam 2 mg/ml vial IV ONE (16:15)
[2020-12-27] MEDS ORDERED: ondansetron/PF 4mg/2ml inj IV ONE (16:15)
[2020-12-27] MEDS ORDERED: normal saline 1000ml 1,000 ML IV ONE (16:20)
[2020-12-27 17:04] LABS: BASOPHILS % (AUTO) 0.1 % (0-1); EOSINOPHILS % (AUTO) 0 % (0-6); HEMATOCRIT 41.8 % (35.0-45.0); LYMPHOCYTES # (AUTO) 1.2 X10'3 (1.1-4.8); LYMPHOCYTES % (AUTO) 7.8 % (21-51); MEAN CORPUSCULAR HEMOGLOBIN 28.3 PG (27.0-31.0); MEAN CORPUSCULAR HGB CONC 33.6 g/dL (33.0-36.5); MEAN CORPUSCULAR VOLUME 84.3 FL (78-98); MEAN PLATELET VOLUME 9.2 FL (7.4-10.4); MONOCYTES # (AUTO) 0.7 X10'3 (0-0.9); MONOCYTES % (AUTO) 4.6 % (2-12); NEUTROPHILS # (AUTO) 13.6 X10'3 (1.8-7.7); NEUTROPHILS % (AUTO) 87.5 % (42-75); PLATELET COUNT 315 X10'3 (140-440); RED BLOOD COUNT 4.96 X10'6 (4.20-5.60); RED CELL DISTRIBUTION WIDTH 14.2 % (11.5-14.5); WHITE BLOOD COUNT 15.6 X10'3 (4.5-11.0)
[2020-12-27 17:12] LABS: ALANINE AMINOTRANSFERASE 20 U/L (12-78); ALBUMIN 4.3 G/DL (3.4-5.0); ALBUMIN/GLOBULIN RATIO 1.2 (1.1-1.5); ALKALINE PHOSPHATASE 65 IU/L (46-116); ANION GAP 16 (8-16); ASPARTATE AMINO TRANSFERASE 21 U/L (10-37); BILIRUBIN,TOTAL 1.6 MG/DL (0.1-1.0); BLOOD UREA NITROGEN 12 MG/DL (7-18); BUN/CREATININE RATIO 19.4 (6.6-38.0); CALCIUM 9.4 MG/DL (8.5-10.1); CHLORIDE 101 MMOL/L (99-107); CREATININE 0.62 MG/DL (0.40-0.90); GLUCOSE 110 MG/DL (70-104); LIPASE 55 U/L (73-393); POTASSIUM 3.5 MMOL/L (3.5-5.1); SODIUM 140 MMOL/L (135-145); TOTAL CARBON DIOXIDE 22.7 MMOL/L (24-32); eGFR > 90 ML/MIN
[2020-12-27] MEDS ORDERED: PROC25SU31 RC (17:27)
[2020-12-27 17:51] VITALS: BP 100/54
== END 2020-12-27 17:53 | disposition home or self-care (01) ==
LOC: ER 12:51
DX: R11.2 Nausea with vomiting, unspecified (principal); G89.29 Other chronic pain; F12.90 Cannabis use, unspecified, uncomplicated; Z79.2 Long term (current) use of antibiotics; Z79.899 Other long term (current) drug therapy
CPT/HCPCS: 36415; 80053; 83690; 85025; 96361; 96374; 96375; 99284; J0780; J1200; J2060; J2405; J7030

== ENCOUNTER 2020-12-29 00:51 | Emergency (ER) | payer MEDICAID ==
[~2020-12-29] VITALS: Ht 157.5 cm; Wt 53.2 kg
[~2020-12-29 00:51] MED LIST changes: +PROC25SU31 RC
[2020-12-29] MEDS ORDERED: proCHLORperazine 10 MG/2 ml inj IV ONE (01:05)
[2020-12-29] MEDS ORDERED: LORazepam 2 mg/ml vial IV ONE (01:05)
[2020-12-29] MEDS ORDERED: normal saline 1000ml 1,000 ML IV ONE (01:05)
[2020-12-29] MEDS ORDERED: diphenhydrAMINE 50 mg/ml inj IV ONE (01:05)
[2020-12-29] MEDS ORDERED: ondansetron/PF 4mg/2ml inj IV ONE (01:05)
[2020-12-29] MEDS ORDERED: haloperidol lactate 5mg/ml inj IM ONE (01:35)
[2020-12-29] MEDS ORDERED: metoclopramide 5 mg/ml inj IV ONE (01:35)
[2020-12-29 04:06] VITALS: BP 117/81
== END 2020-12-29 04:37 | disposition home or self-care (01) ==
LOC: ER 00:52
DX: R11.15 Cyclical vomiting syndrome unrelated to migraine (principal); R11.2 Nausea with vomiting, unspecified; G89.29 Other chronic pain; F41.9 Anxiety disorder, unspecified; F32.9 Major depressive disorder, single episode, unspecified; F12.90 Cannabis use, unspecified, uncomplicated; Z79.2 Long term (current) use of antibiotics; Z79.899 Other long term (current) drug therapy
CPT/HCPCS: 96361; 96374; 96375; 99284; J0780; J1200; J2060; J2405; J2765; J7030

== ENCOUNTER 2021-01-01 10:09 | Emergency (ER) | payer MEDICAID ==
[~2021-01-01] VITALS: Ht 157.5 cm; Wt 51.3 kg
[2021-01-01 11:01] VITALS: BP 99/72
[2021-01-01 12:14] LABS: BASOPHILS % (AUTO) 0.5 % (0-1); EOSINOPHILS # (AUTO) 0.1 X10'3 (0-0.9); EOSINOPHILS % (AUTO) 0.8 % (0-6); HEMATOCRIT 42.6 % (35.0-45.0); HEMOGLOBIN 14.1 g/dl (12.0-16.0); LYMPHOCYTES # (AUTO) 2.3 X10'3 (1.1-4.8); LYMPHOCYTES % (AUTO) 30.4 % (21-51); MEAN CORPUSCULAR HEMOGLOBIN 27.9 PG (27.0-31.0); MEAN CORPUSCULAR HGB CONC 33.2 g/dL (33.0-36.5); MEAN CORPUSCULAR VOLUME 84.2 FL (78-98); MEAN PLATELET VOLUME 8.8 FL (7.4-10.4); MONOCYTES # (AUTO) 0.5 X10'3 (0-0.9); MONOCYTES % (AUTO) 6.9 % (2-12); NEUTROPHILS # (AUTO) 4.6 X10'3 (1.8-7.7); NEUTROPHILS % (AUTO) 61.4 % (42-75); PLATELET COUNT 318 X10'3 (140-440); RED BLOOD COUNT 5.05 X10'6 (4.20-5.60); RED CELL DISTRIBUTION WIDTH 13.9 % (11.5-14.5); WHITE BLOOD COUNT 7.5 X10'3 (4.5-11.0)
[2021-01-01 12:25] LABS: ALANINE AMINOTRANSFERASE 18 U/L (12-78); ALBUMIN 3.9 G/DL (3.4-5.0); ALBUMIN/GLOBULIN RATIO 1.2 (1.1-1.5); ALKALINE PHOSPHATASE 60 IU/L (46-116); ANION GAP 8 (8-16); ASPARTATE AMINO TRANSFERASE 14 U/L (10-37); BILIRUBIN,TOTAL 1.2 MG/DL (0.1-1.0); BLOOD UREA NITROGEN 7 MG/DL (7-18); BUN/CREATININE RATIO 12.3 (6.6-38.0); CALCIUM 8.9 MG/DL (8.5-10.1); CHLORIDE 102 MMOL/L (99-107); CREATININE 0.57 MG/DL (0.40-0.90); GLUCOSE 99 MG/DL (70-104); LIPASE 59 U/L (73-393); POTASSIUM 3.1 MMOL/L (3.5-5.1); SODIUM 138 MMOL/L (135-145); TOTAL CARBON DIOXIDE 27.8 MMOL/L (24-32); TOTAL PROTEIN 7.1 G/DL (6.4-8.2); eGFR > 90 ML/MIN
[2021-01-01] MEDS ORDERED: PROM25SU9 RC (14:41)
[2021-01-01] MEDS ORDERED: potassium Cl 20 mEq SR tablet PO STA (14:43)
[2021-01-01] MEDS ORDERED: haloperidol lactate 5mg/ml inj IM ONE (14:45)
== END 2021-01-01 14:59 | disposition home or self-care (01) ==
LOC: ER 10:10
DX: R11.15 Cyclical vomiting syndrome unrelated to migraine (principal); R11.2 Nausea with vomiting, unspecified; E87.6 Hypokalemia; G89.29 Other chronic pain; F41.9 Anxiety disorder, unspecified; F32.9 Major depressive disorder, single episode, unspecified; F12.90 Cannabis use, unspecified, uncomplicated; Z79.2 Long term (current) use of antibiotics; Z79.899 Other long term (current) drug therapy
CPT/HCPCS: 36415; 80053; 83690; 85025; 99283

== ENCOUNTER 2021-03-02 01:47 | Emergency (ER) | payer MEDICAID ==
[~2021-03-02] VITALS: Ht 157.5 cm; Wt 51.0 kg
[~2021-03-02 01:47] MED LIST changes: -PROC25SU31 RC; +PROM25SU9 RC
[2021-03-02] MEDS ORDERED: LORazepam 2 mg/ml vial IV ONE (02:10)
[2021-03-02] MEDS ORDERED: normal saline 1000ML IV soln IVB ONE ×2 (02:10→03:05)
[2021-03-02] MEDS ORDERED: haloperidol lactate 5mg/ml inj IM ONE (02:10)
[2021-03-02] MEDS ORDERED: proCHLORperazine 10 MG/2 ml inj IV ONE (02:10)
[2021-03-02 02:33] LABS: BASOPHILS % (AUTO) 0.1 % (0-1); EOSINOPHILS % (AUTO) 0 % (0-6); HEMATOCRIT 41.5 % (35.0-45.0); LYMPHOCYTES # (AUTO) 0.9 X10'3 (1.1-4.8); LYMPHOCYTES % (AUTO) 6.2 % (21-51); MEAN CORPUSCULAR HEMOGLOBIN 28.4 PG (27.0-31.0); MEAN CORPUSCULAR HGB CONC 33.7 g/dL (33.0-36.5); MEAN CORPUSCULAR VOLUME 84.4 FL (78-98); MONOCYTES # (AUTO) 0.3 X10'3 (0-0.9); MONOCYTES % (AUTO) 1.9 % (2-12); NEUTROPHILS # (AUTO) 12.7 X10'3 (1.8-7.7); NEUTROPHILS % (AUTO) 91.8 % (42-75); PLATELET COUNT 259 X10'3 (140-440); RED BLOOD COUNT 4.91 X10'6 (4.20-5.60); RED CELL DISTRIBUTION WIDTH 14.6 % (11.5-14.5); WHITE BLOOD COUNT 13.8 X10'3 (4.5-11.0)
[2021-03-02 02:39] LABS: ALANINE AMINOTRANSFERASE 18 U/L (12-78); ALBUMIN 4.2 G/DL (3.4-5.0); ALBUMIN/GLOBULIN RATIO 1.2 (1.1-1.5); ALKALINE PHOSPHATASE 60 IU/L (46-116); ANION GAP 15 (8-16); ASPARTATE AMINO TRANSFERASE 16 U/L (10-37); BILIRUBIN,TOTAL 2.4 MG/DL (0.1-1.0); BLOOD UREA NITROGEN 9 MG/DL (7-18); BUN/CREATININE RATIO 10.3 (6.6-38.0); CALCIUM 9.2 MG/DL (8.5-10.1); CHLORIDE 103 MMOL/L (99-107); CREATININE 0.87 MG/DL (0.40-0.90); GLUCOSE 144 MG/DL (70-104); POTASSIUM 3.8 MMOL/L (3.5-5.1); SODIUM 140 MMOL/L (135-145); TOTAL CARBON DIOXIDE 22.1 MMOL/L (24-32); TOTAL PROTEIN 7.6 G/DL (6.4-8.2); eGFR 79 ML/MIN
[2021-03-02 04:52] LABS: URINE HCG NEGATIVE (NEG)
[2021-03-02 04:59] LABS: CLARITY,URINE CLEAR (Clear); COLOR,URINE YELLOW (Yellow); GLUCOSE, URINE NEGATIVE (Neg); KETONES,URINE 40 mg/dl (Neg); LEUKOCYTE ESTERASE ,URINE NEGATIVE (Neg); NITRITES, URINE NEGATIVE (Neg); OCCULT BLOOD,URINE NEGATIVE (Neg); PH,URINE 6.5 (4.8-8.0); PROTEIN,URINE NEGATIVE (Neg); UROBILINOGEN,URINE 0.2 E.U/dL (0.2-1.0)
[2021-03-02 05:05] LABS: UA COLLECTION TYPE NON-SPECIFIED
[2021-03-02 05:12] LABS: URINE AMPHETAMINE SCREEN NEGATIVE (Neg); URINE BARBITUATE SCREEN NEGATIVE (Neg); URINE BENZODIAZEPINES SCREEN NEGATIVE (Neg); URINE CANNABINOID SCREEN POSITIVE (Neg); URINE COCAINE SCREEN NEGATIVE (Neg); URINE METHADONE SCREEN NEGATIVE (Neg); URINE OPIATE SCREEN NEGATIVE (Neg); URINE PHENCYCLIDINE SCREEN NEGATIVE (Neg)
[2021-03-02 05:31] VITALS: BP 124/90
== END 2021-03-02 05:41 | disposition home or self-care (01) ==
LOC: ER 01:47
DX: F12.188 Cannabis abuse with other cannabis-induced disorder (principal); R11.2 Nausea with vomiting, unspecified; G89.29 Other chronic pain; F41.9 Anxiety disorder, unspecified; F32.9 Major depressive disorder, single episode, unspecified; Z76.5 Malingerer [conscious simulation]; Z79.2 Long term (current) use of antibiotics; Z79.899 Other long term (current) drug therapy
CPT/HCPCS: 36415; 80053; 80305; 81003; 81025; 85025; 96372; 96374; 96375; 99284; J0780; J1630; J2060; J7030; 96361

== ENCOUNTER 2021-03-05 00:50 | Emergency (ER) | payer MEDICAID ==
[~2021-03-05] VITALS: Ht 157.5 cm; Wt 50.0 kg
[2021-03-05] MEDS ORDERED: pantoprazole 40 MG vial IV ONE (01:25)
[2021-03-05] MEDS ORDERED: haloperidol lactate 5mg/ml inj IM ONE (01:25)
[2021-03-05] MEDS ORDERED: normal saline 1000ML IV soln IVB ONE (01:25)
[2021-03-05] MEDS ORDERED: ondansetron/PF 4mg/2ml inj IV ONE (01:25)
[2021-03-05] MEDS ORDERED: famotidine/PF 10 mg/ml inj IV ONE (01:25)
[2021-03-05 03:00] VITALS: BP 124/85
[2021-03-05 03:03] LABS: BASOPHILS % (AUTO) 0.4 % (0-1); EOSINOPHILS % (AUTO) 0 % (0-6); HEMATOCRIT 41.8 % (35.0-45.0); LYMPHOCYTES # (AUTO) 1.3 X10'3 (1.1-4.8); LYMPHOCYTES % (AUTO) 10.7 % (21-51); MEAN CORPUSCULAR HEMOGLOBIN 28.2 PG (27.0-31.0); MEAN CORPUSCULAR HGB CONC 33.6 g/dL (33.0-36.5); MEAN CORPUSCULAR VOLUME 84.1 FL (78-98); MEAN PLATELET VOLUME 9.4 FL (7.4-10.4); MONOCYTES # (AUTO) 0.5 X10'3 (0-0.9); MONOCYTES % (AUTO) 3.8 % (2-12); NEUTROPHILS # (AUTO) 10.2 X10'3 (1.8-7.7); NEUTROPHILS % (AUTO) 85.1 % (42-75); PLATELET COUNT 265 X10'3 (140-440); RED BLOOD COUNT 4.97 X10'6 (4.20-5.60); RED CELL DISTRIBUTION WIDTH 14.8 % (11.5-14.5)
[2021-03-05 03:04] LABS: ALANINE AMINOTRANSFERASE 20 U/L (12-78); ALBUMIN/GLOBULIN RATIO 1.3 (1.1-1.5); ALKALINE PHOSPHATASE 58 IU/L (46-116); ANION GAP 9 (8-16); ASPARTATE AMINO TRANSFERASE 18 U/L (10-37); BILIRUBIN,TOTAL 3.1 MG/DL (0.1-1.0); BLOOD UREA NITROGEN 10 MG/DL (7-18); BUN/CREATININE RATIO 14.3 (6.6-38.0); CALCIUM 8.5 MG/DL (8.5-10.1); CHLORIDE 103 MMOL/L (99-107); GLUCOSE 103 MG/DL (70-104); POTASSIUM 3.6 MMOL/L (3.5-5.1); SODIUM 136 MMOL/L (135-145); TOTAL CARBON DIOXIDE 24.2 MMOL/L (24-32); eGFR > 90 ML/MIN
[2021-03-05 03:13] LABS: ETHANOL < 0.010 GM/DL (0.0-0.010)
[2021-03-05] MEDS ORDERED: PROC25SU31 RC (04:31)
[2021-03-05 04:36] LABS: CLARITY,URINE CLEAR (Clear); COLOR,URINE YELLOW (Yellow); GLUCOSE, URINE NEGATIVE (Neg); KETONES,URINE 40 mg/dl (Neg); LEUKOCYTE ESTERASE ,URINE NEGATIVE (Neg); NITRITES, URINE NEGATIVE (Neg); OCCULT BLOOD,URINE SMALL (Neg); PH,URINE 6.5 (4.8-8.0); PROTEIN,URINE NEGATIVE (Neg); URINE HCG NEGATIVE (NEG)
[2021-03-05 04:40] LABS: UA COLLECTION TYPE CLN CATCH MIDSTREAM
[2021-03-05 04:41] LABS: BACTERIA,URINE NONE SEEN /HPF (Neg); RBC,URINE 0-2 /HPF (0-2); SQUAMOUS EPITHELIAL CELL,UR FEW /LPF (FEW); WBC,URINE 0-4 /HPF (0-4)
[2021-03-05 04:48] LABS: URINE AMPHETAMINE SCREEN NEGATIVE (Neg); URINE BARBITUATE SCREEN NEGATIVE (Neg); URINE BENZODIAZEPINES SCREEN NEGATIVE (Neg); URINE CANNABINOID SCREEN POSITIVE (Neg); URINE COCAINE SCREEN NEGATIVE (Neg); URINE METHADONE SCREEN NEGATIVE (Neg); URINE OPIATE SCREEN NEGATIVE (Neg); URINE PHENCYCLIDINE SCREEN NEGATIVE (Neg)
== END 2021-03-05 04:53 | disposition home or self-care (01) ==
LOC: ER 00:51
DX: R11.2 Nausea with vomiting, unspecified (principal); F12.10 Cannabis abuse, uncomplicated; G89.29 Other chronic pain; Z79.2 Long term (current) use of antibiotics; Z79.899 Other long term (current) drug therapy
CPT/HCPCS: 36415; 80053; 80305; 80320; 81001; 81025; 84443; 85025; 96372; 96374; 96375; 99284; C9113; J1630; J2405; J3490; J7030

== ENCOUNTER 2022-01-31 07:15 | Emergency (ER) | payer MEDICAID ==
[~2022-01-31] VITALS: Ht 157.5 cm; Wt 55.0 kg
[~2022-01-31 07:15] MED LIST changes: -CEPH-585 PO
[2022-01-31] MEDS ORDERED: haloperidol lactate 5mg/ml inj IV ONE ×2 (08:05→08:25)
[2022-01-31] MEDS ORDERED: MAGNESIUM SULFATE/D5W 1 GM/100 ML PIGGYBACK IV ONE (08:05)
[2022-01-31] MEDS ORDERED: ringers solution, lacted 1,000 ML IV ONE (08:05)
[2022-01-31] MEDS ORDERED: magnesium sulf injection 1 GM in normal saline 50ml IV soln 50 ML IV ONE (08:20)
[2022-01-31] MEDS ORDERED: NORMAL SALINE IV ONE (08:20)
[2022-01-31] MEDS ORDERED: MAGNESIUM SULF IV ONE (08:20)
[2022-01-31 08:24] LABS: BASOPHILS % (AUTO) 0.3 % (0-1); EOSINOPHILS % (AUTO) 0.4 % (0-6); HEMATOCRIT 41.6 % (35.0-45.0); LYMPHOCYTES # (AUTO) 2.4 X10'3 (1.1-4.8); LYMPHOCYTES % (AUTO) 25.8 % (21-51); MEAN CORPUSCULAR HEMOGLOBIN 29.3 PG (27.0-31.0); MEAN CORPUSCULAR HGB CONC 33.7 g/dL (33.0-36.5); MEAN PLATELET VOLUME 8.7 FL (7.4-10.4); MONOCYTES # (AUTO) 0.4 X10'3 (0-0.9); MONOCYTES % (AUTO) 3.9 % (2-12); NEUTROPHILS # (AUTO) 6.4 X10'3 (1.8-7.7); NEUTROPHILS % (AUTO) 69.6 % (42-75); PLATELET COUNT 302 X10'3 (140-440); RED BLOOD COUNT 4.78 X10'6 (4.20-5.60); RED CELL DISTRIBUTION WIDTH 13.9 % (11.5-14.5); WHITE BLOOD COUNT 9.2 X10'3 (4.5-11.0)
[2022-01-31 08:40] LABS: ALANINE AMINOTRANSFERASE 22 U/L (12-78); ALBUMIN 4.3 G/DL (3.4-5.0); ALBUMIN/GLOBULIN RATIO 1.2 (1.1-1.5); ALKALINE PHOSPHATASE 54 IU/L (46-116); ANION GAP 14 (8-16); ASPARTATE AMINO TRANSFERASE 21 U/L (10-37); BILIRUBIN,TOTAL 1.1 MG/DL (0.1-1.0); BLOOD UREA NITROGEN 15 MG/DL (7-18); BUN/CREATININE RATIO 18.8 (6.6-38.0); CALCIUM 9.2 MG/DL (8.5-10.1); CHLORIDE 104 MMOL/L (99-107); GLUCOSE 159 MG/DL (70-104); LIPASE 63 U/L (73-393); POTASSIUM 3.2 MMOL/L (3.5-5.1); SODIUM 141 MMOL/L (135-145); TOTAL CARBON DIOXIDE 22.6 MMOL/L (24-32); eGFR 87 ML/MIN
[2022-01-31] MEDS ORDERED: LORazepam 2 mg/ml vial IV ONE (08:40)
[2022-01-31 09:51] LABS: HCG SERUM QL NEGATIVE
[2022-01-31 10:03] VITALS: BP 116/77
[2022-01-31] MEDS ORDERED: haloperidol lactate 5mg/ml inj IM ONE (11:20)
--- NOTE | 2022-01-31 12:19 | NUR ---
Pt improved. Will d/c home now
[2022-01-31] MEDS ORDERED: HALO5TAB PO (12:20)
== END 2022-01-31 12:21 | disposition home or self-care (01) ==
LOC: ER 07:16
DX: R11.15 Cyclical vomiting syndrome unrelated to migraine (principal)
CPT/HCPCS: 36415; 80053; 83690; 84703; 85025; 96365; 96372; 96375; 99284; J1630; J2060; J3475; J3490; J7120

== ENCOUNTER 2022-02-22 00:29 | Emergency (ER) | payer MEDICAID ==
[~2022-02-22] VITALS: Ht 157.5 cm; Wt 52.7 kg
[~2022-02-22 00:29] MED LIST changes: +HALO5TAB PO
[2022-02-22] MEDS ORDERED: haloperidol lactate 5mg/ml inj IV ONE (00:50)
[2022-02-22] MEDS ORDERED: normal saline 1000ML IV soln IVB ONE (00:50)
[2022-02-22] MEDS ORDERED: ondansetron/PF 4mg/2ml inj IV ONE (00:50)
[2022-02-22] MEDS ORDERED: LORazepam 2 mg/ml vial IV ONE ×2 (00:50→01:40)
[2022-02-22] MEDS ORDERED: proCHLORperazine 10 MG/2 ml inj IV ONE (01:40)
[2022-02-22 01:49] LABS: BASOPHILS % (AUTO) 0.3 % (0-1); EOSINOPHILS % (AUTO) 0 % (0-6); HEMATOCRIT 39.1 % (35.0-45.0); HEMOGLOBIN 13.4 g/dl (12.0-16.0); LYMPHOCYTES # (AUTO) 1.5 X10'3 (1.1-4.8); LYMPHOCYTES % (AUTO) 11.4 % (21-51); MEAN CORPUSCULAR HEMOGLOBIN 29.6 PG (27.0-31.0); MEAN CORPUSCULAR HGB CONC 34.2 g/dL (33.0-36.5); MEAN CORPUSCULAR VOLUME 86.4 FL (78-98); MEAN PLATELET VOLUME 8.9 FL (7.4-10.4); MONOCYTES # (AUTO) 0.7 X10'3 (0-0.9); MONOCYTES % (AUTO) 5.3 % (2-12); NEUTROPHILS # (AUTO) 11.1 X10'3 (1.8-7.7); PLATELET COUNT 274 X10'3 (140-440); RED BLOOD COUNT 4.53 X10'6 (4.20-5.60); RED CELL DISTRIBUTION WIDTH 13.8 % (11.5-14.5); WHITE BLOOD COUNT 13.4 X10'3 (4.5-11.0)
[2022-02-22 02:05] LABS: ALANINE AMINOTRANSFERASE 17 U/L (12-78); ALBUMIN/GLOBULIN RATIO 1.3 (1.1-1.5); ALKALINE PHOSPHATASE 41 IU/L (46-116); ANION GAP 11 (8-16); ASPARTATE AMINO TRANSFERASE 17 U/L (10-37); BILIRUBIN,TOTAL 2.3 MG/DL (0.1-1.0); BLOOD UREA NITROGEN 8 MG/DL (7-18); BUN/CREATININE RATIO 11.6 (6.6-38.0); CALCIUM 8.9 MG/DL (8.5-10.1); CHLORIDE 104 MMOL/L (99-107); CREATININE 0.69 MG/DL (0.40-0.90); GLUCOSE 96 MG/DL (70-104); LIPASE < 50 U/L (73-393); POTASSIUM 3.4 MMOL/L (3.5-5.1); SODIUM 140 MMOL/L (135-145); TOTAL CARBON DIOXIDE 25.2 MMOL/L (24-32); TOTAL PROTEIN 7.2 G/DL (6.4-8.2); eGFR > 90 ML/MIN
[2022-02-22 03:20] LABS: URINE HCG NEGATIVE (NEG)
[2022-02-22 03:33] LABS: CLARITY,URINE CLEAR (Clear); COLOR,URINE YELLOW (Yellow); GLUCOSE, URINE NEGATIVE (Neg); KETONES,URINE 40 mg/dl (Neg); LEUKOCYTE ESTERASE ,URINE NEGATIVE (Neg); NITRITES, URINE NEGATIVE (Neg); OCCULT BLOOD,URINE NEGATIVE (Neg); PROTEIN,URINE TRACE mg/dl (Neg)
[2022-02-22 03:43] LABS: UA COLLECTION TYPE CLN CATCH MIDSTREAM
[2022-02-22 03:44] LABS: SQUAMOUS EPITHELIAL CELL,UR MANY /LPF (FEW)
[2022-02-22 03:45] LABS: BACTERIA,URINE FEW /HPF (Neg); MUCUS STRANDS MODERATE /LPF (Neg); RBC,URINE 0-2 /HPF (0-2); WBC,URINE NONE SEEN /HPF (0-4)
[2022-02-22] MEDS ORDERED: metoclopramide 5 mg/ml inj IV ONE (04:00)
[2022-02-22 04:46] VITALS: BP 93/52
== END 2022-02-22 05:18 | disposition home or self-care (01) ==
LOC: ER 00:30
DX: R11.15 Cyclical vomiting syndrome unrelated to migraine (principal); R11.0 Nausea; F41.9 Anxiety disorder, unspecified; G89.29 Other chronic pain; F32.9 Major depressive disorder, single episode, unspecified; F12.90 Cannabis use, unspecified, uncomplicated; Z79.899 Other long term (current) drug therapy
CPT/HCPCS: 36415; 80053; 81001; 81025; 83690; 85025; 96361; 96374; 96375; 99284; J0780; J1630; J2060; J2405; J2765; J7030